=== PATIENT | male | born 1940 | race Caucasian/White ===

== ENCOUNTER → 2018-04-07 | Outpatient (CLI) | payer MEDICARE, OTHER ==
[~2018-04-07] MED LIST: ANDRODERM1 EAC3 TOP; ASPIR 8181 MG PO; ATENOLOL50 MG PO; CHROMIUM PICO400 MCG PO; CRAMPS OTC PO; GLIMEPIRIDE2 MG PO; GLUCOSAMINE H1500 MG PO; LISINOPRIL40 MG PO; METFORMIN HCL1000 MG PO; MULTI-VITAMIN1 EACH PO; NIFEDICAL XL60 MG PO; PRAVASTATIN SOD40 MG PO; TRIAMTERENE-HCTZ1 EA PO
--- NOTE | 2018-04-07 11:04 | Diagnostic Imaging Report ---
PROCEDURE: CT ABDOMEN AND PELVIS WITHOUT CONTRAST TECHNIQUE: The abdomen and pelvis were scanned utilizing a multidetector helical scanner from the diaphragm to the lesser trochanter after the oral administration of water. No IV contrast was administered per renal stone protocol. Coronal and sagittal multiplanar reformations were obtained. COMPARISON: None. INDICATIONS: RULE OUT STONE FINDINGS: ABSENCE OF INTRAVENOUS CONTRAST DECREASES SENSITIVITY FOR DETECTION OF FOCAL LESIONS AND VASCULAR PATHOLOGY. LOWER THORAX: Atelectatic changes in the lateral lingula (series 3, image 14). Mild bilateral lower lobe pleural thickening. Atherosclerotic calcification of the aortic valves and coronary arteries. HEPATOBILIARY: Diffuse hepatic steatosis, worse in the right hepatic lobe. No focal lesions. No biliary ductal dilation. Gallbladder is unremarkable. SPLEEN: No splenomegaly. PANCREAS: No focal masses or ductal dilatation. ADRENALS: No adrenal nodules. KIDNEYS/URETERS: No renal or ureteral calculi. No hydronephrosis, hydroureter, or evidence of obstruction. No renal contour abnormalities or significant perinephric stranding. PELVIC ORGANS/BLADDER: The bladder is decompressed, but grossly unremarkable. No focal lesions. Prostate is enlarged, measuring approximately 5.5 x 3.7 x 5.2 cm (estimated volume estimated volume 55 mL). PERITONEUM / RETROPERITONEUM: No free air or fluid. Mildly increased attenuation of the central mesentery (for example series 3, image 76 and sagittal image 102). 3.7 x 2.8 x 2.0 cm soft tissue density with punctate calcification in the central mesentery (series 3, image 80, and sagittal image 93). LYMPH NODES: No retroperitoneal, pelvic, or inguinal adenopathy. Borderline enlarged right external iliac node, which measures 1.0 cm in short axis (series 3, image 153). subcentimeter VESSELS: Mild atrophic calcification of the abdominal aorta and iliac vessels. GI TRACT: Visualized bowel shows no dilation or evidence of obstruction. A few diverticula in the ascending colon, without diverticulitis. BONES AND SOFT TISSUES: No aggressive lytic lesions. Degenerative changes in the lower thoracic and lumbosacral spine. IMPRESSION: 1. No renal, ureteral, or bladder calculi, hydronephrosis, or obstruction. 2. Mildly increased attenuation in the central mesentery ("alivia mesentery"). Differential diagnosis includes idiopathic causes, mesenteric inflammation/panniculitis, and mesenteric edema. Lymphoma is also in the differential consideration, particularly given the 3.7 cm soft tissue density in the central mesentery, which may represent an enlarged or conglomerate lymph node (although there is no other significant adenopathy noted in the abdomen or pelvis). 3. 3.7 cm soft tissue density with punctate calcification in the central mesentery, which may represent an enlarged lymph node/conglomerate, as described above. Other considerations include desmoid tumor and carcinoid tumor. 4. Diffuse hepatic steatosis. Seth Moser M.D. Dictated by: Seth Moser M.D. on 04/07/2018 at 11:13 Electronically approved by: Seth Moser M.D. on 04/07/2018 at 11:13
== END ==
LOC: CT 08:36
PROVIDERS: ATTEND Specialist
DX: N20.0 Calculus of kidney (principal)
CPT/HCPCS: 74176

== ENCOUNTER → 2018-04-15 | Outpatient (CLI) | payer MEDICARE, OTHER ==
--- NOTE | 2018-04-15 14:09 | Diagnostic Imaging Report ---
MRI SPINE LUMBAR WO HISTORY: Low back pain, left side COMPARISON: None. TECHNIQUE: Sagittal T1, sagittal T2, sagittal STIR, axial T2, coronal T2, and axial proton density weighted images of the lumbar spine were obtained without contrast. DISCUSSION: Number of non-rib bearing lumbar vertebral bodies: 5. Alignment: Normal lordosis. No scoliosis. Vertebrae: A few scattered nodular T1 hyperintense vertebral body lesions are likely hemangiomas. Otherwise, no fractures, infection or neoplasm. Conus medullaris: Normal, ends at approximately L1-L2. Cauda equina: There is mild cauda equina crowding at L4-L5. Otherwise, no masses or arachnoiditis. Posterior paraspinal muscles: Well preserved. No signal abnormalities. Soft tissues: There may be mild scarring in the upper right kidney. Mild multilevel disc degeneration is superimposed on a congenitally narrow lumbar spinal canal. There is also mild lumbar epidural lipomatosis. T12-L1: Patent canal and foramina. L1-L2: Disc bulge without significant canal or foraminal stenosis. L2-L3: Mild canal stenosis due to disc bulge and ligamentum flavum thickening. Mild bilateral foraminal stenoses due to disc bulge and facet arthrosis. L3-L4: Mild canal stenosis due to disc bulge and ligamentum flavum thickening. Mild bilateral foraminal stenoses due to disc bulge and facet arthrosis. L4-L5: Minimal grade 1 anterolisthesis of L4 on L5 due to severe bilateral L4-L5 facet arthrosis. Small bilateral facet effusions are present. Moderate canal stenosis due to uncovered disc bulge and ligamentum flavum thickening. Mild to moderate bilateral foraminal stenoses due to uncovered disc bulge and facet arthrosis. Questionable 0.6 cm synovial cyst at the left L4-L5 neural foramen abuts the left L4 nerve root. L5-S1: Mild to moderate bilateral foraminal stenoses due to disc bulge and facet arthrosis. No significant canal stenosis. Facet arthrosis is severe bilaterally with small bilateral facet effusions. IMPRESSION: 1. Mild multilevel disc degeneration superimposed on a congenitally narrow lumbar spinal canal. 2. Minimal grade 1 anterolisthesis of L4 on L5 due to severe bilateral L4-L5 facet arthrosis. 3. 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 Canal stenoses are accentuated by mild lumbar epidural lipomatosis. 4. Multilevel degenerative foraminal stenoses - mild to moderate bilaterally at L4-L5 and L5-S1. 5. Possible 0.6 cm synovial cyst at the left L4-L5 neural foramen abuts the left L4 nerve root. 6. Severe L5-S1 facet arthrosis. Signed by: Dr. Yann Hernandez M.D. on 04/15/2018 2:06 PM
== END ==
LOC: MRI 09:27
PROVIDERS: ATTEND Specialist
DX: M54.5 Low back pain (principal); M51.26 Other intervertebral disc displacement, lumbar region
CPT/HCPCS: 72148

== ENCOUNTER → 2018-05-07 | Day surgery (SDC) | payer MEDICARE, OTHER ==
[2018-05-05 11:25] LABS: BASOPHILS % 0.5 % (0.0-1.0); EOSINOPHILS # (AUTO) 0.3 (0.0-0.4); EOSINOPHILS % 3.9 % (0.0-6.0); HEMATOCRIT 48.2 % (38.2-49.6); HEMOGLOBIN 15.6 g/dL (14.0-18.0); LYMPHOCYTES # (AUTO) 2.3 (1.0-3.2); MEAN CORPUSCULAR HEMOGLOBIN 29.9 pg (28-32); MEAN CORPUSCULAR HGB CONC 32.4 g/dL (31-35); MEAN CORPUSCULAR VOLUME 92.3 fL (81-99); MONOCYTES # (AUTO) 0.7 (0.2-0.8); MONOCYTES % 9.5 % (4.4-11.3); NEUTROPHILS # (AUTO) 4.1 (2.1-6.9); NEUTROPHILS % 54.8 % (38.7-80.0); PLATELET COUNT 212 x10e3/uL (140-360); RED BLOOD COUNT 5.22 x10e6/uL (4.3-5.7); RED CELL DISTRIBUTION WIDTH 13.8 % (11.7-14.4)
[~2018-05-07] MED LIST changes: +FENTANYL CITRATE/PF 100MCG/2 ML INJ ONE; +IOPAMIDOL 200 MG/ML 20 ML VIAL IT ONE; +LIDOCAINE HCL 1% 30ML-PF VIAL ONE; +LIDOCAINE HCL 2% LOCAL INJ 5 ML SDV VIAL INJ ONE; +MIDAZOLAM HCL 2 MG/2 ML VIAL ONE; +PROPOFOL IV EMULSION 10 MG/ML 20 ML VIAL ONE; +TRIAMCINOLONE ACET 40 MG/ML VIAL ONE
--- OUTSIDE RECORDS SUMMARY | 2018-05-07 05:55 | XMS REPORT ---
Author Author [facility] Address Unknown Phone Unavailable Care Team Providers Care Natural [employer] Professor Name Role Phone SOLITARIO VENEGAS Unavailable Unavailable Problems This patient has no known problems. Allergies, Adverse Reactions, Alerts This patient has no known allergies or adverse reactions. Medications This patient has no known medications. Results Test Description Test Time Test Comments Text Results Atomic Results Result Comments MRI SPINE LUMBAR WO 2018-04-15 13:48:00 [place] [address] Patient Name: SAMINA GREEN JR MR #: [id number] : 1940 Age/Sex: 78/M Req #: [id number] [facility] Physician: Ordered by: SOLITARIO VENEGAS MD Report #: [id number] Location: MRI Room/Bed: Procedure: [id number] MRI/MRI SPINE LUMBAR WO Exam Date: 04/15/18 Exam Time: 1106 REPORT STATUS: Signed MRI SPINE LUMBAR WO HISTORY: Low back pain, left side COMPARISON: None. TECHNIQUE: Sagittal T1, sagittal T2, sagittal STIR, axial T2, coronal T2, and axial proton density weighted images of the lumbar spine were obtained without contrast. DISCUSSION: Number of non-rib bearing lumbar vertebral bodies: 5. Alignment: Normal lordosis. No scoliosis. Vertebrae: A few scattered nodular T1 hyperintense vertebral body lesions are likely hemangiomas. Otherwise, no fractures, infection or neoplasm. Conus medullaris: Normal, ends at approximately L1-L2. Cauda equina: There is mild cauda equina crowding at L4-L5. Otherwise, no masses or arachnoiditis. Posterior paraspinal muscles: Well preserved. No signal abnormalities. Soft tissues: There may be mild scarring in the upper right kidney. Mild multilevel disc degeneration is superimposed on a congenitally narrow lumbar spinal canal. There is also mild lumbar epidural lipomatosis. T12-L1: Patent canal and foramina. L1-L2: Disc bulge without significant canal or foraminal stenosis. L2-L3: Mild canal stenosis due to disc bulge and ligamentum flavum thickening. Mild bilateral foraminal stenoses due to disc bulge and facet arthrosis. L3-L4: Mild canal stenosis due to disc bulge and ligamentum flavum thickening. Mild bilateral foraminal stenoses due to disc bulge and facet arthrosis. L4-L5: Minimal grade 1 anterolisthesis of L4 on L5 due to severe bilateral L4-L5 facet arthrosis. Small bilateral facet effusions are present. Moderate canal stenosis due to uncovered disc bulge and ligamentum flavum thickening. Mild to moderate bilateral foraminal stenoses due to uncovered disc bulge and facet arthrosis. Questionable 0.6 cm synovial cyst at the left L4-L5 neural foramen abuts the left L4 nerve root. L5-S1: Mild to moderate bilateral foraminal stenoses due to disc bulge and facet arthrosis. No significant canal stenosis. Facet arthrosis is severe bilaterally with small bilateral facet effusions. IMPRESSION: 1. Mild multilevel disc degeneration superimposed on a congenitally narrow lumbar spinal canal. 2. Minimal grade 1 anterolisthesis of L4 on L5 due to severe bilateral L4-L5 facet arthrosis. 3. 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 Canal stenoses are accentuated by mild lumbar epidural lipomatosis. 4. Multilevel degenerative foraminal stenoses - mild to moderate bilaterally at L4-L5 and L5-S1. 5. Possible 0.6 cm synovial cyst at the left L4-L5 neural foramen abuts the left L4 nerve root. 6. Severe L5-S1 facet arthrosis. Signed by: Dr. Yann Hernandez M.D. on 04/15/2018 2:06 PM Dictated By: YANN HERNANDEZ MD 05 Transcribed By: BENSON on 04/15/181405 COPY TO: SOLITARIO VENEGAS MD CT ABDOMEN/PELVIS WO 2018-04-07 11:13:00 [place] [address] Patient Name: SAMINA GREEN JR MR #: [id number] : 1940 Age/Sex: 78/M Req #: [id number] Adm Physician: Ordered by: SOLITARIO VENEGAS MD Report #: [id number] Location: CT Room/Bed: Procedure: [id number] CT/CT ABDOMEN/PELVIS WO Exam Date: 04/07/18 Exam Time: 0932 REPORT STATUS: Signed PROCEDURE: CT ABDOMEN AND PELVIS WITHOUT CONTRAST TECHNIQUE: The abdomen and pelvis were scanned utilizing a multidetector helical scanner from the diaphragm to the lesser trochanter after the oral administration of water. No IV contrast was administered per renal stone protocol. Coronal and sagittal multiplanar reformations were obtained. COMPARISON: None. INDICATIONS: RULE OUT STONE FINDINGS: ABSENCE OF INTRAVENOUS CONTRAST DECREASES SENSITIVITY FOR DETECTION OF FOCAL LESIONS AND VASCULAR PATHOLOGY. LOWER THORAX: Atelectatic changes in the lateral lingula (series 3, image 14). Mild bilateral lower lobe pleural thickening. Atherosclerotic calcification of the aortic valves and coronary arteries. HEPATOBILIARY: Diffuse hepatic steatosis, worse in the right hepatic lobe. No focal lesions. No biliary ductal dilation. Gallbladder is unremarkable. SPLEEN: No splenomegaly. PANCREAS: No focal masses or ductal dilatation. ADRENALS: No adrenal nodules. KIDNEYS/URETERS: No renal or ureteral calculi. No hydronephrosis, hydroureter, or evidence of obstruction. No renal contour abnormalities or significant perinephric stranding. PELVIC ORGANS/BLADDER: The bladder is decompressed, but grossly unremarkable. No focal lesions. Prostate is enlarged, measuring approximately 5.5 x 3.7 x 5.2 cm (estimated volume estimated volume 55 mL). PERITONEUM / RETROPERITONEUM: No free air or fluid. Mildly increased attenuation of the central mesentery (for example series 3, image 76 and sagittal image 102). 3.7 x 2.8 x 2.0 cm soft tissue density with punctate calcification in the central mesentery (series 3, image 80, and sagittal image 93). LYMPH NODES: No retroperitoneal, pelvic, or inguinal adenopathy. Borderline enlarged right external iliac node, which measures 1.0 cm in short axis (series 3, image 153). subcentimeter VESSELS: Mild atrophic calcification of the abdominal aorta and iliac vessels. GI TRACT: Visualized bowel shows no dilation or evidence of obstruction. A few diverticula in the ascending colon, without diverticulitis. BONES AND SOFT TISSUES: No aggressive lytic lesions. Degenerative changes in the lower thoracic and lumbosacral spine. IMPRESSION: 1. No renal, ureteral, or bladder calculi, hydronephrosis, or obstruction. 2. Mildly increased attenuation in the central mesentery ("alivia mesentery"). Differential diagnosis includes idiopathic causes, mesenteric inflammation/panniculitis, and mesenteric edema. Lymphoma is also in the differential consideration, particularly given the 3.7 cm soft tissue density in the central mesentery, which may represent an enlarged or conglomerate lymph node (although there is no other significant adenopathy noted in the abdomen or pelvis). 3. 3.7 cm soft tissue density with punctate calcification in the central mesentery, which may represent an enlarged lymph node/conglomerate, as described above. Other considerations include desmoid tumor and carcinoid tumor. 4. Diffuse hepatic steatosis. Saray Moser M.D. Dictated by: Saray Moser M.D. on 04/07/2018 at 11:13 Electronically approved by: Saray Moser M.D. on 04/07/2018 at 11:13 Dictated By: SARAY MOSER MD [id number] Transcribed By: Obi COLLIER on 04/07/183 COPY TO: SOLITARIO VENEGAS MD
[2018-05-07 08:45] VITALS: BP 115/61
== END | disposition home or self-care (01) ==
LOC: OR 05:53
PROVIDERS: ATTEND Physical Medicine & Rehabilitation Pain Medicine
DX: M47.896 Other spondylosis, lumbar region (principal); R93.7 Abnormal findings on diagnostic imaging of other parts of musculoskeletal system; K85.90 Acute pancreatitis without necrosis or infection, unspecified; I10 Essential (primary) hypertension; E11.9 Type 2 diabetes mellitus without complications; E66.9 Obesity, unspecified; Z01.810 Encounter for preprocedural cardiovascular examination; Z79.82 Long term (current) use of aspirin; Z79.84 Long term (current) use of oral hypoglycemic drugs; Z68.33 Body mass index [BMI] 33.0-33.9, adult
CPT/HCPCS: 36415 ×2; 64493; 64494; 64495; 82948; 85025; 93005; J2001 ×2; J2250; J2704; J3301; Q9967; 77003

== ENCOUNTER → 2018-10-13 | Day surgery (SDC) | payer MEDICARE, OTHER ==
[2018-10-12 12:11] LABS: BASOPHILS % 0.6 % (0.0-1.0); EOSINOPHILS # (AUTO) 0.2 (0.0-0.4); EOSINOPHILS % 2.8 % (0.0-6.0); HEMATOCRIT 48.7 % (38.2-49.6); HEMOGLOBIN 16.3 g/dL (14.0-18.0); LYMPHOCYTES # (AUTO) 1.6 (1.0-3.2); LYMPHOCYTES % 23.7 % (18.0-39.1); MEAN CORPUSCULAR HEMOGLOBIN 29.8 pg (28-32); MEAN CORPUSCULAR HGB CONC 33.5 g/dL (31-35); MONOCYTES # (AUTO) 0.8 (0.2-0.8); MONOCYTES % 11.8 % (4.4-11.3); NEUTROPHILS # (AUTO) 4.2 (2.1-6.9); NEUTROPHILS % 60.8 % (38.7-80.0); PLATELET COUNT 252 x10e3/uL (140-360); RED BLOOD COUNT 5.47 x10e6/uL (4.3-5.7); RED CELL DISTRIBUTION WIDTH 14.6 % (11.7-14.4)
[2018-10-12 12:18] LABS: INR 0.92; PROTHROMBIN TIME 12.9 seconds (11.9-14.5)
[2018-10-12 12:22] LABS: ALBUMIN 3.3 g/dL (3.5-5.0); ALBUMIN/GLOBULIN RATIO 0.9 (0.8-2.0); CALCIUM 8.9 mg/dL (8.4-10.2); CHOL/HDL RATIO 3.5 (3.9-4.7); CREATININE, SERUM 1.32 mg/dL (0.72-1.25)
[2018-10-13] VITALS (7 sets, daily range): BP systolic 97–127; BP diastolic 52–73
[~2018-10-13] VITALS: Ht 188 cm; Wt 113.4 kg
[~2018-10-13] MED LIST changes: +ANDRODERM1 EAC3 SC; -ANDRODERM1 EAC3 TOP; +FLOMAX0.4 MG PO; +HEPARIN SOD/SOD CHLORIDE 0 ML ONE; -IOPAMIDOL 200 MG/ML 20 ML VIAL IT ONE; +IOPAMIDOL 370 MG/ML 200 ML INFUS..BTL INJ ONE; -LIDOCAINE HCL 1% 30ML-PF VIAL ONE; +LIDOCAINE HCL 2% LOCAL 20 ML VIAL ONE; -LIDOCAINE HCL 2% LOCAL INJ 5 ML SDV VIAL INJ ONE; -PROPOFOL IV EMULSION 10 MG/ML 20 ML VIAL ONE; +SODIUM CHLORIDE 0.9% 1000ML 0 ML ONE; -TRIAMCINOLONE ACET 40 MG/ML VIAL ONE; +VERAPAMIL HCL 2.5 MG/ML 2 ML VIAL ONE; +VISION VITAMIN1 EACH PO
--- NOTE | 2018-10-13 09:46 | NUR ---
0946 Received pt [facility] Dr Helton Rm #10 report form Griselda BOLAND Identifierx2 no fix. Iv site w/o s/s infiltration infusing. at bedside explained POC aware of importance of f/o Dr Helton office Has copies of POC Back to baseline orientation Resp shallow and regular. 100% RA Abdomen soft and non tender Denies necessity to defecate or urinate. Bilateral PP present. Rt TR band approach for 12cc balloon to release balloon air at 1030 and dc home at 1100am No gross issues with pain pallor pressure or dysrhythmia.Rt hand neuro vascular function intact.Dressing to TR band site intact. ds/rn
--- NOTE | 2018-10-13 10:30 | NUR ---
1030 -2cc for 12cc balloon volume Neuro vascular function remains intact . positive radial pulse. 1045 -2cc Neuro vascular function remain intact 1100 -2cc Neuro vascular function remains intact no air in ballon left TR band removed and Coban sterile 2x2 dressing and arm splint in place with Tegaderm instructed in car and family aware of home care and importance of followup care with copies of POC. sandi/rn
--- NOTE | 2018-10-13 11:00 | NUR ---
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 To per [facility] employee has copies of dc papers Iv removed site w/o s/s infiltration and Coban dressing in place.Denies c/o CP or SOB,no gross issues with pain pallor pressure or dysrhythmia and TR band dressing site intact with wrist splint. ds/rn
--- NOTE | 2018-11-16 07:30 | Operative Report ---
DATE OF PROCEDURE: 10/13/2018 SURGEON: Larry Helton MD INDICATIONS: Coronary artery disease. PROCEDURES PERFORMED: 1. Left heart catheterization, selective coronary angiography. 2. Deployment of right wrist TR band. COMPLICATIONS: None. RECOMMENDATIONS: Medical therapy. DESCRIPTION OF PROCEDURE: Access obtained in the right radial artery. A 5-[place]ese sheath was placed. Diagnostic coronary angiogram revealed mild coronary artery disease in the left main, right coronary and left anterior descending artery, circumflex system, a small 2 mm vessel ostial 80% stenosis. No intervention was deemed necessary. Right wrist TR band applied. The patient discharged home same day. Larry Helton MD KSB/MODL /[id number]
== END | disposition home or self-care (01) ==
LOC: CATH LAB 07:13
PROVIDERS: ATTEND Internal Medicine Interventional Cardiology
DX: I25.118 Atherosclerotic heart disease of native coronary artery with other forms of angina pectoris (principal); I10 Essential (primary) hypertension; E78.5 Hyperlipidemia, unspecified; E13.9 Other specified diabetes mellitus without complications; Z01.812 Encounter for preprocedural laboratory examination; Z79.82 Long term (current) use of aspirin; Z79.84 Long term (current) use of oral hypoglycemic drugs; Z68.32 Body mass index [BMI] 32.0-32.9, adult; Z82.49 Family history of ischemic heart disease and other diseases of the circulatory system
CPT/HCPCS: 36415; 80053; 80061; 85025; 85610; 93454; C1769; C1887; J2250; J2001; J3010; J7030; Q9967

== ENCOUNTER → 2019-01-07 | Day surgery (SDC) | payer MEDICARE, OTHER ==
[2019-01-04 11:15] LABS: BASOPHILS % 0.4 % (0.0-1.0); EOSINOPHILS # (AUTO) 0.4 (0.0-0.4); EOSINOPHILS % 5.8 % (0.0-6.0); HEMATOCRIT 42.4 % (38.2-49.6); HEMOGLOBIN 13.6 g/dL (14.0-18.0); LYMPHOCYTES % 15.5 % (18.0-39.1); MEAN CORPUSCULAR HEMOGLOBIN 30.2 pg (28-32); MEAN CORPUSCULAR HGB CONC 32.1 g/dL (31-35); MONOCYTES # (AUTO) 0.6 (0.2-0.8); MONOCYTES % 9.2 % (4.4-11.3); NEUTROPHILS # (AUTO) 4.6 (2.1-6.9); NEUTROPHILS % 68.7 % (38.7-80.0); PLATELET COUNT 210 x10e3/uL (140-360); RED BLOOD COUNT 4.51 x10e6/uL (4.3-5.7); RED CELL DISTRIBUTION WIDTH 17.9 % (11.7-14.4)
[~2019-01-07] MED LIST changes: -HEPARIN SOD/SOD CHLORIDE 0 ML ONE; +IOPAMIDOL 200 MG/ML 20 ML VIAL IT ONE; -IOPAMIDOL 370 MG/ML 200 ML INFUS..BTL INJ ONE; +LIDOCAINE HCL 1% 30ML-PF VIAL ONE; -LIDOCAINE HCL 2% LOCAL 20 ML VIAL ONE; +LIDOCAINE HCL 2% LOCAL INJ 5 ML SDV VIAL INJ ONE; -MIDAZOLAM HCL 2 MG/2 ML VIAL ONE; +PROPOFOL IV EMULSION 10 MG/ML 20 ML VIAL ONE; -SODIUM CHLORIDE 0.9% 1000ML 0 ML ONE; +TRIAMCINOLONE ACET 40 MG/ML VIAL ONE; -VERAPAMIL HCL 2.5 MG/ML 2 ML VIAL ONE
[2019-01-07 07:55] VITALS: BP 155/92
== END | disposition home or self-care (01) ==
LOC: OR 05:00
PROVIDERS: ATTEND Physical Medicine & Rehabilitation Pain Medicine
DX: M47.896 Other spondylosis, lumbar region (principal); M48.061 Spinal stenosis, lumbar region without neurogenic claudication; E11.9 Type 2 diabetes mellitus without complications; H91.90 Unspecified hearing loss, unspecified ear; I25.10 Atherosclerotic heart disease of native coronary artery without angina pectoris; I10 Essential (primary) hypertension; I49.3 Ventricular premature depolarization; Z01.812 Encounter for preprocedural laboratory examination; F41.9 Anxiety disorder, unspecified; Z79.82 Long term (current) use of aspirin; Z79.84 Long term (current) use of oral hypoglycemic drugs; Z98.61 Coronary angioplasty status
CPT/HCPCS: 36415 ×2; 64493; 64494; 64495; 82948; 85025; J2001 ×2; J2704; J3010; J3301; Q9967; 77003

== ENCOUNTER → 2019-02-04 | Day surgery (SDC) | payer MEDICARE, OTHER ==
[~2019-02-04] MED LIST changes: +MIDAZOLAM HCL 2 MG/2 ML VIAL ONE
[2019-02-04 08:30] VITALS: BP 140/88
== END | disposition home or self-care (01) ==
LOC: OR 05:49
PROVIDERS: ATTEND Physical Medicine & Rehabilitation Pain Medicine
DX: M47.896 Other spondylosis, lumbar region (principal); M48.061 Spinal stenosis, lumbar region without neurogenic claudication; I10 Essential (primary) hypertension; E11.9 Type 2 diabetes mellitus without complications; B15.9 Hepatitis A without hepatic coma; Z01.810 Encounter for preprocedural cardiovascular examination; Z79.82 Long term (current) use of aspirin; Z79.84 Long term (current) use of oral hypoglycemic drugs; Z68.32 Body mass index [BMI] 32.0-32.9, adult
CPT/HCPCS: 36415; 64493; 64494; 64495; 82948; 93005; J2001 ×2; J2250; J2704; J3010; J3301; Q9967; 77003

== ENCOUNTER 2019-04-12 09:24 | Emergency (ER) | payer MEDICARE, OTHER ==
[~2019-04-12] VITALS: Ht 188 cm; Wt 113.4 kg
[~2019-04-12 09:24] MED LIST changes: -FENTANYL CITRATE/PF 100MCG/2 ML INJ ONE; -IOPAMIDOL 200 MG/ML 20 ML VIAL IT ONE; -LIDOCAINE HCL 1% 30ML-PF VIAL ONE; -LIDOCAINE HCL 2% LOCAL INJ 5 ML SDV VIAL INJ ONE; -MIDAZOLAM HCL 2 MG/2 ML VIAL ONE; -PROPOFOL IV EMULSION 10 MG/ML 20 ML VIAL ONE; -TRIAMCINOLONE ACET 40 MG/ML VIAL ONE
[2019-04-12] MEDS ORDERED: DEXAMETHASONE SOD PHOS 10 MG/1 ML VIAL IM ONE (10:00)
--- NOTE | 2019-04-12 11:42 | Diagnostic Imaging Report ---
EXAMINATION: KNEE THREE VIEWS BILATERAL INDICATION: Trauma COMPARISON: None FINDINGS: Left knee: No acute fracture or dislocation. Moderate to severe patellofemoral compartment predominant tricompartmental degenerative changes with joint space narrowing and bulky osteophyte formation. No substantial joint effusion. Right knee: No acute fracture or dislocation. Severe patellofemoral compartment predominant tricompartmental degenerative changes with joint space narrowing and bulky osteophyte formation. Small suprapatellar joint effusion with a suprapatellar 16 mm intra-articular loose body. IMPRESSION: No acute osseous injury. 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 Small right suprapatellar joint effusion with a suprapatellar intraarticular loose body. Signed by: Omega Carreno MD on 04/12/2019 11:39 AM
--- NOTE | 2019-04-12 11:48 | Diagnostic Imaging Report ---
EXAMINATION: MANDIBLE COMP 4+VIEW INDICATION: Trauma COMPARISON: None FINDINGS: No acute displaced fracture. The paranasal sinuses appear well aerated. Multiple metallic dental implants. IMPRESSION: No acute displaced fracture. Signed by: Omega Carreno MD on 04/12/2019 11:45 AM
[2019-04-12 12:50] VITALS: BP 127/83
== END 2019-04-12 13:00 | disposition home or self-care (01) ==
LOC: ER 09:24
DX: S00.83XA Contusion of other part of head, initial encounter (principal); S60.222A Contusion of left hand, initial encounter; S60.221A Contusion of right hand, initial encounter; S80.02XA Contusion of left knee, initial encounter; S80.01XA Contusion of right knee, initial encounter; W01.0XXA Fall on same level from slipping, tripping and stumbling without subsequent striking against object, initial encounter; Y93.01 Activity, walking, marching and hiking; Y92.488 Other paved roadways as the place of occurrence of the external cause; M17.0 Bilateral primary osteoarthritis of knee; I10 Essential (primary) hypertension
CPT/HCPCS: 70110; 73562; 99283; J1100

== ENCOUNTER → 2021-02-05 | Outpatient (CLI) | payer MEDICARE, OTHER | LOC: MRI 09:55 | PROVIDERS: ATTEND Physical Medicine & Rehabilitation Pain Medicine | DX: M47.896 Other spondylosis, lumbar region (principal); M51.26 Other intervertebral disc displacement, lumbar region; M46.1 Sacroiliitis, not elsewhere classified | CPT/HCPCS: 72148; 72195 ==

== ENCOUNTER → 2021-02-15 | Day surgery (SDC) | payer MEDICARE, OTHER ==
[2021-02-13 10:13] LABS: BASOPHILS % 0.5 % (0.0-1.0); EOSINOPHILS # (AUTO) 0.2 (0.0-0.4); EOSINOPHILS % 2.9 % (0.0-6.0); HEMOGLOBIN 14.7 g/dL (14.0-18.0); LYMPHOCYTES # (AUTO) 1.5 (1.0-3.2); LYMPHOCYTES % 23.7 % (18.0-39.1); MEAN CORPUSCULAR HEMOGLOBIN 29.1 pg (28-32); MEAN CORPUSCULAR HGB CONC 32.7 g/dL (31-35); MEAN CORPUSCULAR VOLUME 88.9 fL (81-99); MONOCYTES # (AUTO) 0.6 (0.2-0.8); MONOCYTES % 8.9 % (4.4-11.3); NEUTROPHILS % 63.7 % (38.7-80.0); PLATELET COUNT 193 x10e3/uL (140-360); RED BLOOD COUNT 5.06 x10e6/uL (4.3-5.7); RED CELL DISTRIBUTION WIDTH 15.3 % (11.7-14.4)
[~2021-02-15] MED LIST changes: +AMLODIPINE BESYL5 MG PO; +ISOSORBIDE MONO30 MG PO; +LIPITOR10 MG PO; +METFORMIN HCL500 MG PO
[2021-02-15 07:45] VITALS: BP 113/61
== END | disposition home or self-care (01) ==
LOC: OR 08:02
PROVIDERS: ATTEND Physical Medicine & Rehabilitation Pain Medicine
DX: M46.1 Sacroiliitis, not elsewhere classified (principal); M47.896 Other spondylosis, lumbar region; M48.061 Spinal stenosis, lumbar region without neurogenic claudication; M17.0 Bilateral primary osteoarthritis of knee; I49.3 Ventricular premature depolarization; H35.30 Unspecified macular degeneration; I25.10 Atherosclerotic heart disease of native coronary artery without angina pectoris; I10 Essential (primary) hypertension; E78.5 Hyperlipidemia, unspecified; E11.9 Type 2 diabetes mellitus without complications; Z01.810 Encounter for preprocedural cardiovascular examination; Z01.812 Encounter for preprocedural laboratory examination; Z20.822 Contact with and (suspected) exposure to COVID-19; Z79.82 Long term (current) use of aspirin; Z79.84 Long term (current) use of oral hypoglycemic drugs
CPT/HCPCS: 36415; 85025; 93005; G0260; U0002; 77002

== ENCOUNTER → 2021-03-08 | Day surgery (SDC) | payer MEDICARE, OTHER ==
[~2021-03-08] MED LIST changes: +ALFUZOSIN HCL10 MG PO; +DEXAMETHASONE SOD PHOS 10 MG/1 ML VIAL ONE; +IOPAMIDOL 200 MG/ML 20 ML VIAL IT ONE; +LIDOCAINE HCL 1% 30ML-PF VIAL ONE; +LIDOCAINE HCL 2% LOCAL INJ 5 ML SDV VIAL INJ ONE; +POVIDONE IODINE 0.05% 0.05 % ML PO ONE; +PROPOFOL IV EMULSION 10 MG/ML 20 ML VIAL ONE
[2021-03-08 09:30] VITALS: BP 120/78
== END | disposition home or self-care (01) ==
LOC: OR 07:24
PROVIDERS: ATTEND Physical Medicine & Rehabilitation Pain Medicine
DX: M47.896 Other spondylosis, lumbar region (principal); M46.1 Sacroiliitis, not elsewhere classified; M48.061 Spinal stenosis, lumbar region without neurogenic claudication; M17.0 Bilateral primary osteoarthritis of knee; I25.10 Atherosclerotic heart disease of native coronary artery without angina pectoris; B15.9 Hepatitis A without hepatic coma; Z01.812 Encounter for preprocedural laboratory examination; Z20.822 Contact with and (suspected) exposure to COVID-19; Z79.84 Long term (current) use of oral hypoglycemic drugs; Z79.82 Long term (current) use of aspirin
CPT/HCPCS: 36415; 64493; 64494; 64495; 77003; 82948; J1100; J2001 ×2; J2704; Q9967; U0002

== ENCOUNTER → 2021-12-20 | Outpatient (CLI) | payer MEDICARE, OTHER ==
[~2021-12-20] MED LIST changes: -DEXAMETHASONE SOD PHOS 10 MG/1 ML VIAL ONE; -IOPAMIDOL 200 MG/ML 20 ML VIAL IT ONE; +IOPAMIDOL 370 MG/ML 100 ML INFUS..BTL INJ ONE; -LIDOCAINE HCL 1% 30ML-PF VIAL ONE; -LIDOCAINE HCL 2% LOCAL INJ 5 ML SDV VIAL INJ ONE; -POVIDONE IODINE 0.05% 0.05 % ML PO ONE; -PROPOFOL IV EMULSION 10 MG/ML 20 ML VIAL ONE
[2021-12-20 10:09] LABS: CREATININE, SERUM 1.05 mg/dL (0.72-1.25)
== END ==
LOC: CT 09:13
PROVIDERS: ATTEND Dermatology
DX: C44.49 Other specified malignant neoplasm of skin of scalp and neck (principal)
CPT/HCPCS: 36415; 70491; 71260; 82565; 84520; Q9967

== ENCOUNTER → 2022-04-05 | Outpatient (CLI) | payer MEDICARE, OTHER ==
[2022-04-05 15:19] LABS: CREATININE, SERUM 0.98 mg/dL (0.72-1.25)
== END ==
LOC: CT 14:18
PROVIDERS: ATTEND Internal Medicine
DX: I69.991 Dysphagia following unspecified cerebrovascular disease (principal)
CPT/HCPCS: 36415; 70491; 82565; 84520; Q9967

== ENCOUNTER 2022-04-16 11:32 | Emergency (ER) | payer MEDICARE, OTHER ==
[~2022-04-16] VITALS: Ht 188 cm; Wt 109.8 kg
[~2022-04-16 11:32] MED LIST changes: -IOPAMIDOL 370 MG/ML 100 ML INFUS..BTL INJ ONE
== END 2022-04-16 14:36 ==
LOC: ER 11:50
DX: Z43.0 Encounter for attention to tracheostomy (principal); W51.XXXA Accidental striking against or bumped into by another person, initial encounter; Y92.89 Other specified places as the place of occurrence of the external cause; I10 Essential (primary) hypertension; E11.9 Type 2 diabetes mellitus without complications; R60.9 Edema, unspecified; Z85.828 Personal history of other malignant neoplasm of skin
CPT/HCPCS: 99284